=== PATIENT | female | born 1995 | race Caucasian/White ===

== ENCOUNTER 2023-07-18 10:21 | Inpatient (IN) ==
[2023-07-18] MEDS ORDERED: OXYTOCIN 30 UNITS/NSS 30 UNITS/500 ML BAG IV PRN ×2 (10:27→18:41)
[2023-07-18] MEDS ORDERED: LIDOCAINE 1% LOCAL 20 ML VIAL INFIL PRN (10:27)
--- NOTE | 2023-07-18 10:33 | History & Physical Report ---
Date of Service July 18, 2023 Assessment & Plan (1) Normal labor: Plan admit, fetus category one. epidural on demand. pit or arom as needed. anticipate . Admission and Anticipated Discharge Date Admission Date: July 18, 2023 History of Present Illness Primary Care Provider: NO PCP Patient is a 27yowf with iup at 40 4/7 weeks who represents to labor and delivery after going to the office and being rechecked and found to be changed to 3cm. She was just d/c and had visit already scheduled in the office. Breathing through contractions and uncomfortable. The has been uncomplicated and there are no problems/plans to be carried over. OB Labs: Blood Type A Positive 12/08/22 Antibody Screen NEGATIVE 12/08/22 Hemoglobin 11.9 g/dl (12.0-16.0) L 04/28/23 Hematocrit 35.5 % (37.0-47.0) L 04/28/23 Mean Corpuscular Volume 86.4 fL (80.0-100.0) 12/08/22 Platelet Count 320 K/uL (130-400) 12/08/22 Rubella IgG Antibody Immune (Immune) 12/08/22 Rapid Plasma Reagin Nonreactive (Nonreactive) 12/08/22 Hepatitis B Surface Antigen. NON-REACTIVE (NON-REACTIVE) 12/08/22 Hepatitis C Antibody (EIA) NON-REACTIVE (NON-REACTIVE) 12/08/22 HIV (1&2) Ag and Ab Confirmation NON-REACTIVE (NON-REACTIVE) 12/08/22 Glucose 1 Hour 50 gm Load 96 mg/dl (70-130) 04/28/23 Maternal Serum Alpha Fetoprotein 52.5 ng/mL 02/02/23 OB Optional Labs: Chlamydia trachomatis RNA Not Detected (NotDetected) 12/08/22 Neisseria gonorrhoeae RNA Not Detected (NotDetected) 12/08/22 Alpha Fetoprotein Triple Screen SEE NOTE 02/02/23 Labs Reviewed: cfDNA low risk, smp horizon neg --smp gbs negative. Allergies Allergy/AdvReac Type Severity Reaction Status Date / Time No Known Allergies Allergy Verified 07/18/23 09:17 Home Medications Medication Instructions Recorded Confirmed Type cetirizine 10 mg tablet (Zyrtec) 10 mg PO DAILY PRN ALLERGY RELIEF 08/11/22 07/18/23 History prenat.vits,kyara,[id number] 1 tab PO DAILY 08/11/22 07/18/23 History ferrous sulfate 1 tab PO Q OTHER DAY 05/25/23 07/18/23 History Patient History Medical History History of COVID-19 02/2022>RESOLVED Missed Surgical History S/P dilation and curettage D&E Nausea and vomiting after administration of anesthetic agent History of tonsillectomy and adenoidectomy [place] teeth removed History of ankle surgery Family History Grandmother (Paternal) Breast cancer Father Heart disease Other Asthma Diabetes Dyslipidemia Hypertension No family history of adverse response to anesthesia Social History Smoking Status: Never smoker Second Hand Exposure: No; Do You Dip or Chew Tobacco: No; Hx Alcohol Use: No Hx Substance Use: No Preferred Language: Greek Communication Ability: Effective Auto Glass Worker Required: No Beliefs That Will Affect Care: None marital status: marital status details: [facility] (30) [phone] Current Living Situation: Spouse Current Living Situation Comment: Lives with spouse, 1 dog. current occupational status: employed current occupation: Dental Hygenist. Feels Safe at Home: Yes Assistive Devices: None OB History Past Pregnancies Del. Date GA wks Lbr Lgth wt Sex Type del Anes Place Del Prov ? Comment 08/19/22 Aborted-Spontaneous [employer] History noncontributory Physical Exam Constitutional: WD/WN, vitals as above Gastrointestinal (Abdomen): soft, gravid Psychiatric: A+Ox3, euthymic affect Genitourinary: cx--3+cm in the office with Dr. Foreman (was 1.5 on leaving this am) toco--q3-4min efm--130s with mod variability, small accels, no decels--only a short strip so far. Coding Level of Care Code None Diagnoses Normal labor O80; Z37.9
[2023-07-18] MEDS: LACTATED RINGER'S 1,000 ML IV PRN ×3 (10:45→16:22)
[2023-07-18] MEDS ORDERED: fentaNYL citrate PF 100 MCG/2 ML VIAL ONE (10:55)
[2023-07-18] MEDS ORDERED: ePHEDrine sulfate 50 MG/ML AMP ONE (10:55)
[2023-07-18] MEDS ORDERED: SODIUM CHLORIDE 0.9% PF INJ 10 ML VIAL ONE (10:55)
[2023-07-18] MEDS ORDERED: BUPIVACAINE 0.25% PF 30 ML VIAL ONE (10:55)
[2023-07-18] MEDS ORDERED: fentANYL 2 MCG/ML BUPIVacaine 0.125%-NSS 100ML BAG ONE (10:55)
[2023-07-18] MEDS ORDERED: LIDOCAINE 2%/EPINEPHRINE 1:200,000 20 ML PF ONE (10:55)
[2023-07-18 11:02] LABS: Hematocrit (blood only) 38.1 % (37.0-47.0); Hemoglobin 13.8 g/dl (12.0-16.0); Mean Corpuscular Hemoglobin 31.1 pg (25.0-34.0); Mean Corpuscular Hgb Conc 36.2 g/dL (32.0-36.0); Mean Corpuscular Volume 85.8 fL (80.0-100.0); Mean Platelet Volume 10.4 fL (9.4-12.4); Platelet Count 214 K/uL (130-400); RDW Coefficient of Variation 13.3 % (11.5-14.5); RDW Standard Deviation 41.4 fL (36.4-46.3); Red Blood Count 4.44 M/uL (4.20-5.40); White Blood Count 16.21 K/ul (4.8-10.8)
--- NOTE | 2023-07-18 12:19 | Anesthesiology Consultation ---
Date of Service July 18, 2023 Assessment & Plan Chart Review Chart Review: Acceptable Risk for Labor Epidural Consults Requested none History Height/Weight Height: 5 ft 2 in Weight: 58.06 kg Allergies Allergy/AdvReac Type Severity Reaction Status Date / Time No Known Allergies Allergy Verified 07/18/23 09:17 Medications Home Medications Medication Instructions Recorded Confirmed Last Taken cetirizine 10 mg tablet (Zyrtec) 10 mg PO DAILY PRN ALLERGY RELIEF 08/11/22 07/18/23 07/17/23 09:00 prenat.vits,kyara,[id number] 1 tab PO DAILY 08/11/22 07/18/23 07/17/23 09:00 ferrous sulfate 1 tab PO Q OTHER DAY 05/25/23 07/18/23 07/17/23 09:00 Active Medications Generic Name Dose Route Start Last Admin Trade Name Freq PRN Reason Stop Dose Admin Lactated Ringer's 1,000 mls @ 125 mls/hr 07/18/23 10:27 07/18/23 12:15 Lr IV 07/20/23 10:26 125 mls/hr .Q8H PRN Administration L&D Protocol Protocol Past Medical History Medical History History of COVID-19 02/2022>RESOLVED Missed Past Family History Family History Grandmother (Paternal) Breast cancer Father Heart disease Other Asthma Diabetes Dyslipidemia Hypertension No family history of adverse response to anesthesia Past Surgical History Surgical History S/P dilation and curettage D&E Nausea and vomiting after administration of anesthetic agent History of tonsillectomy and adenoidectomy [place] teeth removed History of ankle surgery Social History Smoking Status: Never smoker Do You Dip or Chew Tobacco: No Hx Alcohol Use: No Hx Substance Use: No substance use type: does not use Physical Exam Vital Signs Last Vital Signs Pulse 96 H 07/18/23 12:16 BP 122/74 07/18/23 12:16 Pulse Ox 100 07/18/23 12:16 Testing Laboratory Results 07/18/23 10:48
[2023-07-18] MEDS ORDERED: SODIUM CHLORIDE 0.9% PF INJ 10 ML VIAL EPI PRN (12:20)
[2023-07-18] MEDS ORDERED: fentANYL 2 MCG/ML BUPIVacaine 0.125%-NSS 100ML BAG EPI PRN (12:20)
[2023-07-18] MEDS ORDERED: SODIUM CHLORIDE 0.9% PF INJ 10 ML VIAL EPI STA (12:20)
[2023-07-18] MEDS ORDERED: BUPIVACAINE 0.25% PF 30 ML VIAL EPI PRN (12:20)
[2023-07-18] MEDS ORDERED: LIDOCAINE 2% MPF LOCAL 5 ML VIAL EPI PRN (12:20)
[2023-07-18] MEDS ORDERED: fentaNYL citrate PF 100 MCG/2 ML VIAL EPI PRN (12:20)
[2023-07-18] MEDS ORDERED: LIDOCAINE 2%/EPINEPHRINE 1:200,000 20 ML PF EPI STA (12:20)
[2023-07-18] MEDS ORDERED: NALOXONE HCL 1 MG in SODIUM CHLORIDE 0.9% 1,000 ML IV PRN (12:20)
[2023-07-18] MEDS ORDERED: NALOXONE HCL 0.4 MG/1 ML VIAL/CARP IV PRN (12:20)
[2023-07-18] MEDS ORDERED: BUPIVACAINE 0.25% PF 30 ML VIAL EPI STA (12:20)
[2023-07-18] MEDS ORDERED: ROPIVACAINE 0.5% PF 5 MG/ML 20 ML VIAL EPI PRN (12:20)
[2023-07-18] MEDS ORDERED: ePHEDrine sulfate 50 MG/ML AMP IV PRN (12:20)
[2023-07-18] MEDS ORDERED: NALBUPHINE HCL 5 MG in SYRINGE 0 ML IV PRN (12:20)
[2023-07-18] MEDS ORDERED: ONDANSETRON INJ 2 MG/ML 2 ML VIAL IV PRN (12:20)
[2023-07-18] MEDS ORDERED: fentaNYL citrate PF 100 MCG/2 ML VIAL EPI STA (12:20)
[2023-07-18] MEDS ORDERED: diphenhydrAMINE 50 MG/ML VIAL IV PRN (12:20)
--- NOTE | 2023-07-18 13:33 | Labor Progress Brief Note ---
Date of Service July 18, 2023 Subjective comfortable with mario. Assessment & Plan (1) Normal labor: Plan continue current expectant management. fetus category one. Admission and Anticipated Discharge Date Admission Date: July 18, 2023 Physical Exam Physical Exam: cx--/-2, bloody show arom--clear tocoq2-3min efm--140s wtih mod variability, accels present, no decels Results & Data Vital Signs (Past 12 Hours) Vital Signs Pulse Resp BP Pulse Ox 07/18/23 13:26 81 98 07/18/23 13:21 75 98 07/18/23 13:16 103 H 99 07/18/23 13:11 85 100 07/18/23 13:06 83 98 07/18/23 13:05 102 H 93 07/18/23 13:01 96 H 100 07/18/23 12:57 105 H 93 07/18/23 12:56 97 H 98 07/18/23 12:51 103 H 91 07/18/23 12:46 98 H 99 07/18/23 12:45 99 H 94 07/18/23 12:41 100 H 98 07/18/23 12:40 18 07/18/23 12:40 18 07/18/23 12:39 102 H 92 07/18/23 12:36 106 H 98 07/18/23 12:31 100 07/18/23 12:31 123 H 07/18/23 12:31 113 H 123/81 07/18/23 12:28 110 H 125/80 07/18/23 12:26 100 H 99 07/18/23 12:25 107 H 118/80 07/18/23 12:22 115 H 120/69 07/18/23 12:21 111 H 97 07/18/23 12:19 110 H 121/69 07/18/23 12:16 100 07/18/23 12:16 96 H 07/18/23 12:16 100 H 122/74 07/18/23 12:13 101 H 112/70 07/18/23 12:11 109 H 99 07/18/23 12:10 104 H 111/69 07/18/23 12:07 91 H 114/69 07/18/23 12:06 95 H 98 07/18/23 12:04 93 H 114/71 07/18/23 12:01 94 07/18/23 12:01 102 H 07/18/23 12:01 101 H 121/70 07/18/23 12:00 92 H 93 07/18/23 11:58 97 H 123/73 07/18/23 11:56 104 H 98 07/18/23 11:55 90 130/69 07/18/23 11:51 98 H 97 07/18/23 11:46 112 H 96 07/18/23 11:41 107 H 98 07/18/23 11:36 101 H 99 07/18/23 11:31 99 H 97 07/18/23 11:26 99 07/18/23 11:26 97 H 07/18/23 11:26 95 H 89 L 07/18/23 11:21 93 H 99 07/18/23 11:16 97 07/18/23 11:16 90 07/18/23 11:16 88 124/69 Coding Level of Care Code None Diagnoses Normal labor O80; Z37.9
--- NOTE | 2023-07-18 16:50 | Labor Progress Brief Note ---
Date of Service July 18, 2023 Subjective comfortable Assessment & Plan (1) Normal labor: Plan begin second stage. Admission and Anticipated Discharge Date Admission Date: July 18, 2023 Physical Exam Physical Exam: cx--c/c/+2 toco--q2-3min efm--150s with mod variability, accels present, no decels Results & Data Vital Signs (Past 12 Hours) Vital Signs Temp Pulse Resp BP Pulse Ox 07/18/23 16:46 94 H 98 07/18/23 16:42 103 H 87 L 07/18/23 16:41 92 H 99 07/18/23 16:36 93 H 100 07/18/23 16:34 91 H 141/93 H 07/18/23 16:33 88 92 07/18/23 16:31 89 100 07/18/23 16:26 85 94 07/18/23 16:21 97 H 96 07/18/23 16:17 82 117/73 07/18/23 16:16 83 98 07/18/23 16:13 84 93 07/18/23 16:11 85 99 07/18/23 16:06 88 100 07/18/23 16:03 82 106/66 07/18/23 16:01 83 100 07/18/23 15:56 84 99 07/18/23 15:51 82 100 07/18/23 15:48 83 104/62 07/18/23 15:46 83 96 07/18/23 15:42 81 93 07/18/23 15:41 80 98 07/18/23 15:36 82 100 07/18/23 15:31 81 100 07/18/23 15:26 90 99 07/18/23 15:24 36.8 C 18 07/18/23 15:22 97 H 93 07/18/23 15:21 97 H 95 07/18/23 15:19 85 128/59 L 07/18/23 15:16 96 H 99 07/18/23 15:11 76 97 07/18/23 15:10 73 93 07/18/23 15:06 75 100 07/18/23 15:02 97 H 113/72 07/18/23 15:01 96 H 99 07/18/23 14:56 79 100 07/18/23 14:51 74 100 07/18/23 14:48 74 123/75 07/18/23 14:46 78 100 07/18/23 14:41 76 100 07/18/23 14:36 76 100 07/18/23 14:33 75 127/75 07/18/23 14:31 86 100 07/18/23 14:26 80 99 07/18/23 14:21 74 100 07/18/23 14:17 83 128/77 07/18/23 14:16 89 100 07/18/23 14:11 82 99 07/18/23 14:06 99 07/18/23 14:06 84 07/18/23 14:06 83 91 07/18/23 14:03 77 119/75 07/18/23 14:01 78 99 07/18/23 13:56 82 99 07/18/23 13:51 82 100 07/18/23 13:49 85 113/86 07/18/23 13:46 80 100 07/18/23 13:41 93 H 100 07/18/23 13:40 16 07/18/23 13:40 16 07/18/23 13:36 78 100 07/18/23 13:33 103 H 193/77 H 07/18/23 13:31 81 100 07/18/23 13:26 81 98 07/18/23 13:21 75 98 07/18/23 13:16 103 H 99 07/18/23 13:11 85 100 07/18/23 13:10 16 07/18/23 13:10 16 07/18/23 13:06 83 98 07/18/23 13:05 102 H 93 07/18/23 13:01 96 H 100 07/18/23 12:57 105 H 93 07/18/23 12:56 97 H 98 07/18/23 12:51 103 H 91 07/18/23 12:46 98 H 99 07/18/23 12:45 99 H 94 07/18/23 12:41 100 H 98 07/18/23 12:40 18 07/18/23 12:40 18 07/18/23 12:39 102 H 92 07/18/23 12:36 106 H 98 07/18/23 12:31 100 07/18/23 12:31 123 H 07/18/23 12:31 113 H 123/81 07/18/23 12:28 110 H 125/80 07/18/23 12:26 100 H 99 07/18/23 12:25 107 H 118/80 07/18/23 12:22 115 H 120/69 07/18/23 12:21 111 H 97 07/18/23 12:19 110 H 121/69 07/18/23 12:16 100 07/18/23 12:16 96 H 07/18/23 12:16 100 H 122/74 07/18/23 12:13 101 H 112/70 07/18/23 12:11 109 H 99 07/18/23 12:10 104 H 111/69 07/18/23 12:07 91 H 114/69 07/18/23 12:06 95 H 98 07/18/23 12:04 93 H 114/71 07/18/23 12:01 94 07/18/23 12:01 102 H 07/18/23 12:01 101 H 121/70 07/18/23 12:00 92 H 93 07/18/23 11:58 97 H 123/73 07/18/23 11:56 104 H 98 07/18/23 11:55 90 130/69 07/18/23 11:51 98 H 97 07/18/23 11:46 112 H 96 07/18/23 11:41 107 H 98 07/18/23 11:36 101 H 99 07/18/23 11:31 99 H 97 07/18/23 11:26 99 07/18/23 11:26 97 H 07/18/23 11:26 95 H 89 L 07/18/23 11:21 93 H 99 07/18/23 11:16 97 07/18/23 11:16 90 07/18/23 11:16 88 124/69 Coding Level of Care Code None Diagnoses Normal labor O80; Z37.9
[2023-07-18] MEDS ORDERED: METHYLERGONOVINE MALEATE 0.2 MG/ML AMP ONE (18:25)
[2023-07-18] MEDS ORDERED: METHYLERGONOVINE MALEATE 0.2 MG/ML AMP IM ONE (18:41)
[2023-07-18] MEDS ORDERED: BENZOCAINE 20% SPRY 85 APPLN/85 GM CAN EXT PRN (18:41)
[2023-07-18] MEDS ORDERED: DIPHTHERIA/TETANUS/PERTUSSIS Vaccine (Tdap, Age 7+yrs) 0.5mL SYR/VL IM ONE (18:41)
[2023-07-18] MEDS ORDERED: HYDROCORTISONE ACETATE 25 MG SUPP PR PRN (18:41)
[2023-07-18] MEDS ORDERED: bisacodyL 10 MG SUPP PR PRN (18:41)
[2023-07-18] MEDS ORDERED: oxyCODONE/ACETAMINOPHEN 5mg/325mg TAB PO PRN (18:41)
--- NOTE | 2023-07-18 18:41 | Delivery Summary ---
Vaginal Delivery Summary Date of Service July 18, 2023 Vaginal Delivery Summary and 3rd Degree LAC (partial) Pre-operative Diagnosis: at 40 weeks labor Post-operative Diagnosis: same Procedure: epidural arom midline episotomy partial third degree laceration and repair EBL: 450cc Anesthesia: epidural Procedure: The patient presented to labor and delivery in active labor. She progressed to c/c/+2. The patient pushed for approximately one hour to deliver a viable male in jimbo position. A small midline episiotomy was cut to assist with delivery as the introitus was very tight and concern for tearing into the upper labia/clitoral area. The nose and mouth were bulb suctioned on the perineum, a nuchal cord was reduced and the rest of the infant was then delivered without difficulty. The baby was vigorous. The nose and mouth were again bulb suctioned and the infant was placed in the maternal abdomen for drying and attention. Cord was clamped and cut at one minute of life. Cord blood and segment obtained. Placenta delivered spontaneous, intact with a three vessel cord. Cervix/sulci/rectum were intact. A partial third degree laceration was repaired in the normal standard fashion--2, 2-0 vicryl [id number] sutures were used to reapproximate the sphincter.. Hemostasis obtained with dilute pitocin and fundal massage. Apgars were 8/9. Mother and baby doing well at the end of the delivery. [facility] [place] Vaginal Delivery Charge Delivery Type Details: and 3rd Degree LAC (partial)
--- NOTE | 2023-07-18 19:05 | Anesthesia Procedure Note ---
Date of Service July 18, 2023 Anesthesia Post Epidural Note Vital Signs Vital Signs: Temp Pulse Resp BP Pulse Ox 36.8 C 110 H 18 119/71 99 07/18/23 15:24 07/18/23 18:51 07/18/23 15:24 07/18/23 18:51 07/18/23 18:26 Notes Mental Status: alert / awake / arousable Nausea / Vomiting: adequately controlled Pain: adequately controlled Airway Patency, RR, SpO2: stable & adequate BP & HR: stable & adequate Hydration State: stable & adequate Neuraxial Anesthesia: was administered and sensory block is resolving Anesthetic Complications: no major complications apparent and Pt Satisfied with anesthetic care Epidural: Removed without complications and With tip intact
[2023-07-18] MEDS: IBUPROFEN 600 MG TAB PO PRN (19:38)
[2023-07-18] MEDS: ceFAZolin 1000MG 1,000 MG/7.5 ML SYR IV SCH (20:03)
[2023-07-18] MEDS: DOCUSATE SODIUM 100 MG CAP PO SCH (20:39)
[2023-07-18] MEDS: ACETAMINOPHEN 325 MG TAB PO PRN (23:17)
[2023-07-19] MEDS: IBUPROFEN 600 MG TAB PO PRN ×4 (02:05→20:38)
[2023-07-19] MEDS: ceFAZolin 1000MG 1,000 MG/7.5 ML SYR IV SCH ×2 (04:24→11:33)
--- NOTE | 2023-07-19 05:06 | Obstetrical Progress Note ---
Date of Service <Schuyler To DO - Last Filed: 07/19/23 06:32> July 19, 2023 Assessment & Plan <Schuyler To DO - Last Filed: 07/19/23 06:32> (1) care following vaginal delivery: Plan 27 year old , PPD#1: Eating well, voiding well, ambulating well Vitals reviewed, WNL Pain well controlled with Tylenol and Motrin Routine post care - OOB, ambulation, diet progression as tolerated Will have 6 week follow up with Dr. An <Arelis An MD, FACOG - Last Filed: 07/19/23 07:11> (1) care following vaginal delivery: Subjective <Schuyler To - Last Filed: 07/19/23 06:32> Ambulation: ambulating normally Voiding: no voiding problems Passing Gas:: No Diet Tolerance:: regular diet Lochia:: Moderate Feeding Type:: breast feeding Pain well controlled with Tylenol and Motrin Review of Systems -Denies fever or chills -Denies dyspnea, chest pain, or palpitations -Denies dysuria -Denies headache or changes in vision Physical Exam <Schuyler To - Last Filed: 07/19/23 06:32> General: Alert and oriented. No acute distress Cardiac: Regular rate and rhythm, no murmurs appreciated Respiratory: Lungs clear to auscultation bilaterally, No increased work of breathing Abdominal: Soft, non-tender, non-distended. Bowel sounds present. Uterus: Uterine fundus firm, palpable below umbilicus Extremities: No lower extremity edema, calves non-tender bilaterally Results & Data <Schuyler To - Last Filed: 07/19/23 06:32> Vital Signs (Past 12 Hours) Vital Signs Temp Pulse Pulse Resp BP BP Pulse Ox 07/18/23 23:10 36.6 C 86 18 118/67 98 07/18/23 21:20 36.7 C 95 H 20 121/74 97 07/18/23 21:20 07/18/23 20:32 100 H 115/69 07/18/23 20:30 18 07/18/23 20:17 114 H 121/64 07/18/23 20:02 107 H 125/67 07/18/23 20:00 18 07/18/23 19:48 111 H 134/98 07/18/23 19:33 115 H 124/85 07/18/23 19:30 18 07/18/23 19:19 104 H 126/60 07/18/23 19:15 18 07/18/23 19:00 18 07/18/23 18:51 110 H 119/71 07/18/23 18:32 117 H 123/66 07/18/23 18:26 99 07/18/23 18:26 114 H 07/18/23 18:26 113 H 118/62 07/18/23 18:21 116 H 97 07/18/23 18:18 123 H 157/71 H 07/18/23 18:16 121 H 95 07/18/23 18:11 110 H 98 07/18/23 18:06 108 H 97 07/18/23 18:02 109 H 133/86 07/18/23 18:01 111 H 96 07/18/23 17:56 111 H 98 07/18/23 17:51 168 H 98 07/18/23 17:46 155 H 97 07/18/23 17:41 140 H 96 07/18/23 17:36 139 H 96 07/18/23 17:32 137 H 124/74 07/18/23 17:31 143 H 94 07/18/23 17:26 148 H 98 07/18/23 17:22 122 H 91 07/18/23 17:21 129 H 97 07/18/23 17:19 110 H 118/74 07/18/23 17:16 112 H 98 07/18/23 17:11 139 H 96 O2 Del Method 07/18/23 23:10 Room Air 07/18/23 21:20 Room Air 07/18/23 21:20 Room Air 07/18/23 20:32 07/18/23 20:30 07/18/23 20:17 07/18/23 20:02 07/18/23 20:00 07/18/23 19:48 07/18/23 19:33 07/18/23 19:30 07/18/23 19:19 07/18/23 19:15 07/18/23 19:00 07/18/23 18:51 07/18/23 18:32 07/18/23 18:26 07/18/23 18:26 12/05/23 18:26 07/18/23 18:21 07/18/23 18:18 07/18/23 18:16 07/18/23 18:11 07/18/23 18:06 07/18/23 18:02 07/18/23 18:01 07/18/23 17:56 07/18/23 17:51 07/18/23 17:46 07/18/23 17:41 07/18/23 17:36 07/18/23 17:32 07/18/23 17:31 07/18/23 17:26 07/18/23 17:22 07/18/23 17:21 07/18/23 17:19 07/18/23 17:16 07/18/23 17:11 Supervising Physician <Arelis An MD, FACOG - Last Filed: 07/19/23 07:11> Co-Signing Physician Notes Resident Physician Supervision Note: I interviewed and examined the patient. Discussed with Dr. To and agree with findings and plan as documented in the note. Any exceptions or clarifications are listed here: Doing well. Continued routine care. Home tomorrow as G1. Documented By: Arelis An MD, FACOG Resident Activity Tracking <Schuyler To DO - Last Filed: 07/19/23 06:32> Resident Involvement: Resident Care Provided Care Provided: OB Delivery
[2023-07-19 06:32] LABS: Hematocrit (blood only) 31.9 % (37.0-47.0); Hemoglobin 11.5 g/dl (12.0-16.0); Mean Corpuscular Hemoglobin 31.7 pg (25.0-34.0); Mean Corpuscular Hgb Conc 36.1 g/dL (32.0-36.0); Mean Corpuscular Volume 87.9 fL (80.0-100.0); Mean Platelet Volume 10.4 fL (9.4-12.4); Platelet Count 203 K/uL (130-400); RDW Coefficient of Variation 13.7 % (11.5-14.5); RDW Standard Deviation 43.6 fL (36.4-46.3); Red Blood Count 3.63 M/uL (4.20-5.40); White Blood Count 17.05 K/ul (4.8-10.8)
[2023-07-19] MEDS: DOCUSATE SODIUM 100 MG CAP PO SCH ×2 (07:54→20:38)
[2023-07-19] MEDS: PRENATAL VITAMIN 1 TAB PO SCH (07:54)
[2023-07-19] MEDS: ACETAMINOPHEN 325 MG TAB PO PRN (16:05)
[2023-07-19] MEDS ORDERED: bisacodyL 5 MG TABEC PO SCH (20:00)
--- NOTE | 2023-07-20 06:01 | Obstetrical Progress Note ---
Date of Service <Schuyler To - Last Filed: 07/20/23 06:52> July 20, 2023 Assessment & Plan <Schuyler To - Last Filed: 07/20/23 06:52> (1) care following vaginal delivery: Plan 27 year old , PPD#2: Eating well, voiding well, ambulating well Vitals reviewed, WNL Pain well controlled with Motrin Routine post care - OOB, ambulation, diet progression as tolerated Will have 6 week follow up with Dr. An <Kristina Foreman MD, FACOG - Last Filed: 07/20/23 08:04> (1) care following vaginal delivery: Subjective <Schuyler To DO - Last Filed: 07/20/23 06:52> Ambulation: ambulating normally Voiding: no voiding problems Passing Gas:: Yes Diet Tolerance:: regular diet Lochia:: Small Feeding Type:: breast feeding pain well controlled with Motrin Review of Systems -Denies fever or chills -Denies dyspnea, chest pain, or palpitations -Denies dysuria -Denies headache or changes in vision Physical Exam <Schuyler To DO - Last Filed: 07/20/23 06:52> General: Alert and oriented. No acute distress Cardiac: Regular rate and rhythm, no murmurs appreciated Respiratory: Lungs clear to auscultation bilaterally, No increased work of breathing Abdominal: Soft, non-tender, non-distended. Bowel sounds present. Uterus: Uterine fundus firm, palpable below umbilicus Extremities: No lower extremity edema, calves non-tender bilaterally Results & Data <Schuyler To DO - Last Filed: 07/20/23 06:52> Vital Signs (Past 12 Hours) Vital Signs Temp Pulse Resp BP 07/19/23 23:53 36.7 C 97 H 18 99/64 L 07/19/23 20:40 36.6 C 86 18 112/70 Supervising Physician <Kristina Foreman MD, FACOG - Last Filed: 07/20/23 08:04> Co-Signing Physician Notes Resident Physician Supervision Note: I was present with Dr. To during the history and exam. I discussed the case with the resident and agree with the findings and plan as documented in the note. Any exceptions or clarifications are listed here: [None] Documented By: Kristina Foreman MD, FACOG Resident Activity Tracking <Schuyler To DO - Last Filed: 07/20/23 06:52> Resident Involvement: Resident Care Provided Care Provided: OB Delivery
[2023-07-20 06:34] LABS: Hematocrit (blood only) 29.3 % (37.0-47.0); Hemoglobin 10.2 g/dl (12.0-16.0)
[2023-07-20] MEDS: PRENATAL VITAMIN 1 TAB PO SCH (08:24)
[2023-07-20] MEDS: IBUPROFEN 600 MG TAB PO PRN (08:25)
[2023-07-20] MEDS: DOCUSATE SODIUM 100 MG CAP PO SCH (08:25)
== END 2023-07-20 10:45 | disposition home or self-care (01) | DRG 768 ==
LOC: 4S1 10:21 → 4E2 21:10

== ENCOUNTER 2025-03-14 04:06 | Inpatient (IN) ==
[2025-03-14] MEDS ORDERED: LIDOCAINE 1% LOCAL 20 ML VIAL INFIL PRN (06:07)
[2025-03-14] MEDS ORDERED: OXYTOCIN 30 UNITS/NSS 30 UNITS/500 ML BAG IV PRN (06:07)
[2025-03-14 06:33] LABS: Hematocrit (blood only) 36.4 % (37.0-47.0); Hemoglobin 12.6 g/dl (12.0-16.0); Mean Corpuscular Hemoglobin 29.6 pg (25.0-34.0); Mean Corpuscular Volume 85.6 fL (80.0-100.0); Platelet Count 282 K/uL (130-400); RDW Standard Deviation 42.1 fL (36.4-46.3); Red Blood Count 4.25 M/uL (4.20-5.40); White Blood Count 14.42 K/ul (4.8-10.8)
[2025-03-14] MEDS: PENICILLIN GK 6 MU in DEXTROSE 5% 250 ML IV STA (06:46)
[2025-03-14] MEDS: LACTATED RINGER'S 1,000 ML IV PRN (06:49)
[2025-03-14] MEDS ORDERED: BUPIVACAINE 0.25% PF 30 ML VIAL EPI PRN (07:21)
[2025-03-14] MEDS ORDERED: LIDOCAINE 2% MPF LOCAL 5 ML VIAL EPI PRN (07:21)
[2025-03-14] MEDS ORDERED: NALOXONE HCL 0.4 MG/1 ML VIAL/CARP IV PRN (07:21)
[2025-03-14] MEDS ORDERED: ROPIVACAINE 0.5% PF 5 MG/ML 20 ML VIAL EPI PRN (07:21)
[2025-03-14] MEDS ORDERED: NALOXONE HCL 1 MG in SODIUM CHLORIDE 0.9% 1,000 ML IV PRN (07:21)
[2025-03-14] MEDS ORDERED: diphenhydrAMINE 50 MG/ML VIAL IV PRN (07:21)
[2025-03-14] MEDS ORDERED: NALBUPHINE HCL INJ 10 MG/ML AMP IV PRN (07:21)
[2025-03-14] MEDS ORDERED: fentANYL 2 MCG/ML BUPIVacaine 0.125%-NSS 100ML BAG EPI PRN (07:21)
[2025-03-14] MEDS ORDERED: SODIUM CHLORIDE 0.9% PF INJ 10 ML VIAL EPI PRN (07:21)
[2025-03-14] MEDS ORDERED: ONDANSETRON INJ 2 MG/ML 2 ML VIAL IV PRN ×2 (07:21→07:24)
--- NOTE | 2025-03-14 07:24 | Anesthesiology Consultation ---
Date of Service March 14, 2025 Assessment & Plan (1) Encounter for pre-operative examination: Chart Review Chart Review: Patient NOT seen in Pre Admission Testing and Acceptable Risk for Labor Epidural Consults Requested none History Height/Weight Height: 5 ft 2 in Weight: 58.967 kg Allergies Allergy/AdvReac Type Severity Reaction Status Date / Time No Known Allergies Allergy Verified 03/13/25 09:39 Medications Home Medications Medication Instructions Recorded Confirmed Last Taken cetirizine 10 mg tablet (Zyrtec) 10 mg PO DAILY PRN ALLERGY RELIEF 08/11/22 03/14/25 07/17/23 09:00 prenat.vits,kyara,ikr-ynkr-wnimz 1 tab PO DAILY 08/11/22 03/14/25 1 Day Ago ~03/13/25 cholecalciferol (vitamin D3) 1 tab PO DAILY 08/12/24 03/14/25 1 Day Ago ~03/13/25 magnesium chloride 1 tab PO DAILY 10/29/24 03/14/25 1 Day Ago ~03/13/25 Active Medications Generic Name Dose Route Start Last Admin Trade Name Freq PRN Reason Stop Dose Admin Lactated Ringer's 1,000 mls @ 125 mls/hr 03/14/25 06:07 03/14/25 07:15 Lr IV 03/16/25 06:06 999 mls/hr .Q8H PRN Infusion L&D Protocol Protocol Past Medical History Medical History Varicella vaccination History of COVID-19 02/2022>RESOLVED Missed Exercise / Class Metabolic Activity II 4-5 Yardwork/Stairs/Walk up hill Past Family History Family History Grandmother (Paternal) Breast cancer Father Heart disease Other Asthma Diabetes Dyslipidemia Hypertension No family history of adverse response to anesthesia Denies family history of Ovarian cancer Prostate cancer Lung cancer Colorectal cancer Past Surgical History Surgical History S/P dilation and curettage D&E Nausea and vomiting after administration of anesthetic agent History of tonsillectomy and adenoidectomy [place] teeth removed History of ankle surgery Social History Smoking Status: Never smoker Do You Dip or Chew Tobacco: No Hx Alcohol Use: Yes Alcohol type: beer Hx Substance Use: No substance use type: does not use Physical Exam Vital Signs Last Vital Signs Temp 36.8 C 03/14/25 04:47 Pulse 93 H 03/14/25 07:01 Resp 16 03/14/25 04:47 BP 97/66 L 03/14/25 07:01 Testing Laboratory Results 03/14/25 06:16
[2025-03-14] MEDS: fentANYL 2 MCG/ML BUPIVacaine 0.125%-NSS 100ML BAG ONE (07:52)
[2025-03-14] MEDS: BUPIVACAINE 0.25% PF 30 ML VIAL ONE (07:53)
[2025-03-14] MEDS: LIDOCAINE 2%/EPINEPHRINE 1:200,000 20 ML PF ONE (07:53)
[2025-03-14] MEDS: SODIUM CHLORIDE 0.9% PF INJ 10 ML VIAL ONE (08:22)
[2025-03-14] MEDS: LIDOCAINE 2%/EPINEPHRINE 1:200,000 20 ML PF EPI STA (08:22)
[2025-03-14] MEDS: BUPIVACAINE 0.25% PF 30 ML VIAL EPI STA (08:22)
[2025-03-14] MEDS: SODIUM CHLORIDE 0.9% PF INJ 10 ML VIAL EPI STA (08:23)
[2025-03-14] MEDS: ONDANSETRON INJ 2 MG/ML 2 ML VIAL ONE (09:54)
[2025-03-14] MEDS: PENICILLIN GK 3 MU in DEXTROSE 5% 100 ML IV PRN (10:50)
--- NOTE | 2025-03-14 11:05 | Labor Progress Brief Note ---
Date of Service March 14, 2025 Subjective Comfortable w/ epidural. ?LOF when RN was straight cathing Assessment & Plan (1) Encounter for supervision of normal in multigravida: (2) Carrier of group B Streptococcus: Plan 29 yo at 39 5/7 wga admitted in labor VSS Fetus cat 1 Labor - suspect had srom 20-30 min ago when rn when to straight cath as did not have wet spot on chux before. ?forebag palpated and arom of this completed. Good progress noted GBS+, 2nd dose pcn hung epidural in place Admission and Anticipated Discharge Date Admission Date: March 14, 2025 Physical Exam Genitourinary: Manual OB Exam: + cervical dilation (5-6), + cervical effacement 90%, + station -1 and + amniotic fluid (arom clear) OB Exam Monitor Tracing: + external FHT monitor used, + external uterine monitor used (q3-4) and + category I (125-130/mod/+accel/-decel) Results & Data Vital Signs (Past 12 Hours) Vital Signs Temp Pulse Resp BP Pulse Ox 03/14/25 10:57 79 100 03/14/25 10:55 84 96/73 L 03/14/25 10:52 87 98 03/14/25 10:47 93 H 100 03/14/25 10:42 73 100 03/14/25 10:41 86 107/80 03/14/25 10:39 87 107/77 03/14/25 10:37 75 100 03/14/25 10:32 78 100 03/14/25 10:27 83 98 03/14/25 10:24 72 104/73 03/14/25 10:22 72 100 03/14/25 10:17 77 100 03/14/25 10:12 77 100 03/14/25 10:09 75 106/72 03/14/25 10:07 75 100 03/14/25 10:02 71 100 03/14/25 09:57 78 100 03/14/25 09:54 81 104/68 03/14/25 09:52 78 100 03/14/25 09:47 81 100 03/14/25 09:42 71 100 03/14/25 09:40 75 100/67 03/14/25 09:37 73 100 03/14/25 09:32 75 100 03/14/25 09:27 89 100 03/14/25 09:25 77 18 101/61 03/14/25 09:23 71 94 03/14/25 09:22 71 94 03/14/25 09:17 66 100 03/14/25 09:12 100 03/14/25 09:12 73 03/14/25 09:12 66 99/66 L 03/14/25 09:07 83 98 03/14/25 09:02 72 100 03/14/25 08:57 72 100 03/14/25 08:55 70 114/70 03/14/25 08:52 88 100 03/14/25 08:47 66 100 03/14/25 08:42 69 100 03/14/25 08:40 69 102/72 03/14/25 08:37 72 100 03/14/25 08:32 70 100 03/14/25 08:27 93 H 106/64 100 03/14/25 08:26 70 112/69 03/14/25 08:22 73 100 03/14/25 08:19 73 104/71 03/14/25 08:17 74 99 03/14/25 08:14 71 112/72 03/14/25 08:12 73 98 03/14/25 08:08 160 H 111/50 L 03/14/25 08:07 84 99 03/14/25 08:04 77 115/64 03/14/25 08:02 78 99 03/14/25 07:57 91 H 110/78 100 03/14/25 07:55 75 114/71 03/14/25 07:53 76 114/78 03/14/25 07:52 81 100 03/14/25 07:51 81 114/73 03/14/25 07:49 75 104/70 03/14/25 07:47 98 03/14/25 07:47 78 03/14/25 07:47 76 110/72 03/14/25 07:45 75 103/69 03/14/25 07:43 71 108/70 03/14/25 07:42 74 99 03/14/25 07:41 79 103/71 03/14/25 07:39 104 H 88 L 03/14/25 07:37 90 100 03/14/25 07:32 95 H 100 03/14/25 07:29 96 H 92 03/14/25 07:27 102 H 100 03/14/25 07:15 20 03/14/25 07:15 97.7 F 20 03/14/25 07:01 93 H 97/66 L 03/14/25 07:00 94 H 84/58 L 03/14/25 05:11 86 119/74 03/14/25 04:47 98.2 F 92 H 16 115/72 03/14/25 04:17 16 03/14/25 04:17 98.2 F 16 03/14/25 04:13 92 H 115/72 Coding Level of Care Code None Diagnoses Encounter for supervision of normal in multigravida Z34.80 Carrier of group B Streptococcus Z22.330
[2025-03-14] MEDS ORDERED: DIPHTHER/TETAN/PERTUS Vaccine (Tdap, Adol/Adult) 0.5mL IM ONE (13:44)
[2025-03-14] MEDS ORDERED: HYDROCORTISONE ACETATE 25 MG SUPP PR PRN (13:44)
[2025-03-14] MEDS ORDERED: BENZOCAINE 20% SPRY 85 APPLN/85 GM CAN EXT PRN (13:44)
--- NOTE | 2025-03-14 13:45 | Delivery Summary ---
Vaginal Delivery Summary Date of Service March 14, 2025 Vaginal Delivery Summary and 2nd Degree LAC Pre-operative Diagnosis: at 39 weeks active labor Post-operative Diagnosis: same Procedure: epidural arom second degree laceration repair QBL: 103cc Anesthesia: epidural Procedure: The patient presented to labor and delivery with early active labor. She got epidural and then arom for clear fluid. She progressed to c/c/+2. She pushed for about 4 contractions. The patient pushed to deliver a viable female in doa position. The rest of the was then delivered without difficulty. The baby was vigorous. The nose and mouth were bulb suctioned and the was placed in the maternal abdomen for drying and attention. Cord was clamped and cut at one minute of life. Cord blood and segment obtained. Placenta delivered spontaneous, intact with a three vessel cord. Cervix/sulci/rectum were intact. A second degree perineal laceration was repaired in the normal standard fashion. Hemostasis obtained with dilute pitocin and fundal massage. Apgars were 8/9. Mother and baby doing well at the end of the delivery. [facility] Vaginal Delivery Charge Delivery Type Details: and 2nd Degree LAC
[2025-03-14] MEDS: OXYTOCIN 30 UNITS/NSS 30 UNITS/500 ML BAG IV PRN (14:12)
--- NOTE | 2025-03-14 14:56 | Anesthesia Procedure Note ---
Date of Service March 14, 2025 Anesthesia Post Epidural Note Vital Signs Vital Signs: Temp Pulse Resp BP Pulse Ox 36.9 C 75 20 140/80 99 03/14/25 13:00 03/14/25 14:40 03/14/25 13:00 03/14/25 14:40 03/14/25 13:32 Pain Intensity Bilateral Abdomen: Pain Intensity: 2 Notes Mental Status: alert / awake / arousable and participated in evaluation Patient Amnestic to Procedure: No Nausea / Vomiting: adequately controlled Pain: adequately controlled Airway Patency, RR, SpO2: stable & adequate BP & HR: stable & adequate Hydration State: stable & adequate Neuraxial Anesthesia: was administered and sensory block is resolving Anesthetic Complications: no major complications apparent and Pt Satisfied with anesthetic care Epidural: Removed without complications and With tip intact
[2025-03-14] MEDS: IBUPROFEN 600 MG TAB PO PRN (17:32)
[2025-03-14] MEDS: ACETAMINOPHEN 325 MG TAB PO PRN (19:44)
[2025-03-14] MEDS: DOCUSATE SODIUM 100 MG CAP PO SCH (20:44)
[2025-03-14 23:43] VITALS: RESP 16; O2SAT 96
[2025-03-15 07:27] LABS: Hematocrit (blood only) 31.1 % (37.0-47.0); Hemoglobin 10.3 g/dl (12.0-16.0)
[2025-03-15] MEDS: PRENATAL VITAMIN 1 TAB PO SCH (07:32)
--- NOTE | 2025-03-15 07:34 | Obstetrical Progress Note ---
Date of Service March 15, 2025 Assessment & Plan (1) state: Plan Patient desires d/c at 24 hours. Instructions given. Doing well. f/u 6 weeks. Day #:: 1 Subjective Ambulation: ambulating normally Voiding: no voiding problems Passing Gas:: Yes Diet Tolerance:: regular diet Lochia:: Small Feeding Type:: breast feeding Physical Exam Constitutional WD/WN, vitals as above Respiratory normal respiratory effort, lungs clear to auscultation Cardiovascular RRR, no murmur, no edema Extremities: no calf tenderness and no edema Gastrointestinal (Abdomen) soft, nt, nd, ff/nt at 1 below u Psychiatric A+Ox3, euthymic affect Results & Data Vital Signs (Past 12 Hours) Vital Signs Temp Pulse Resp BP Pulse Ox O2 Del Method 03/14/25 23:17 36.7 C 82 16 97/61 L 96 Room Air 03/14/25 19:39 37.0 C 84 18 102/68 98 Room Air
[2025-03-15 11:24] VITALS: BP 106/62; TEMP 98.1
[2025-03-15 13:12] VITALS: PULSE 82
== END 2025-03-15 14:00 | disposition home or self-care (01) | DRG 807 ==
LOC: OPB 04:06 → 4S1 04:10 → 4E2 16:58